=== PATIENT | male | born 1945 | race Caucasian/White ===

== ENCOUNTER 2016-12-02 13:39 | Inpatient (IN) | payer MEDICARE ==
[2016-12-02] MEDS ORDERED: PRINIVIL20 M1 PO (13:56)
[2016-12-02] MEDS ORDERED: HYDROCHLOROTHIA25 M1 PO (13:56)
[2016-12-02] MEDS ORDERED: NORVASC10 M2 PO (13:57)
[2016-12-02] MEDS ORDERED: TOPROL XL100 M1 PO (13:58)
[2016-12-02] MEDS ORDERED: NEURONTIN100 M1 PO (13:58)
[2016-12-02] MEDS ORDERED: HUMULIN R100 UNITS/ (14:06)
[2016-12-02] MEDS ORDERED: LEVEMIR100 UNITS/ SC (14:06)
[2016-12-02] MEDS ORDERED: ISOSORBIDE MONO30 M4 PO (16:54)
[2016-12-02] MEDS ORDERED: NITROSTAT0.4 M1 PO (16:57)
[2016-12-02] MEDS ORDERED: ULTRAM50 M1 PO (16:57)
[2016-12-02] MEDS ORDERED: LISINOPRIL-HCT1 EAC2 PO (19:15)
[2016-12-02] MEDS ORDERED: DAILY VITE1 EACH PO (19:15)
[2016-12-02] MEDS ORDERED: IBUPROFEN200 M2 PO (19:17)
[2016-12-02 19:18] LABS: BASO % 0.2 % (0-2); EOS % 1.3 % (0-7); EOSINOPHIL ABSOLUTE COUNT 0.2 tho/cmm (0.0-0.7); HCT-HEMATOCRIT 37.1 % (36.0-53.5); HGB-HEMOGLOBIN 12.6 gm/dl (13.5-17.0); IMMATURE GRANULOCYTES PERCENT 0.8 % (0-0.3); LYMPH % 12.8 % (20-45); LYMPH ABSOLUTE COUNT 1.6 tho/cmm (0.8-4.5); MCH (MEAN CORPUSCULAR HGB) 27.8 pg (28.0-32.0); MCV (MEAN CELL VOLUME) 81.9 fl (82.0-96.0); MEAN PLATELET VOLUME 8.9 cmc (9.4-12.4); MONO % 11.2 % (0-12); MONOCYTE ABSOLUTE COUNT 1.4 tho/cmm (0.0-1.2); NEUTROPHIL ABSOLUTE COUNT 9.3 tho/cmm (1.6-8.0); NEUTROPHIL-AUTOMATED 9.3 tho/cmm (1.6-8.0); NEUTROPHILS % 73.7 % (40-80); PLATELET COUNT 358 tho/cmm (150-450); RED BLOOD COUNT 4.53 mil/cmm (4.40-5.70); RED CELL DISTRIBUTION WIDTH 15.1 % (12.4-16.4); WHITE BLOOD COUNT 12.6 tho/cmm (4.0-10.0)
[2016-12-02] MEDS ORDERED: LOPERAMIDE2 M3 PO (19:18)
[2016-12-02] MEDS ORDERED: BENADRYL25 M3 PO (19:19)
[2016-12-02 19:33] LABS: ALB/GLOB RATIO 0.5 (0.8-2.0); ALBUMIN 2.6 g/dl (3.5-5.0); ALKALINE PHOSPHATASE 109 U/L (33-138); ALT/SGPT 17 U/L (12-78); ANION GAP 14 mmol/L (0-20); AST/SGOT 8 U/L (10-40); BILIRUBIN,TOTAL 0.4 mg/dl (0.0-1.5); BLOOD UREA NITROGEN 28 mg/dl (6-24); CALCIUM 8.8 mg/dl (8.5-10.5); CARBON DIOXIDE-VENOUS 26 mmol/L (22-32); CHLORIDE 104 mmol/l (96-110); CREATININE 1.32 mg/dl (0.60-1.30); GLUCOSE 243 mg/dL (70-110); MAGNESIUM 2.2 mg/dl (1.8-2.6); POTASSIUM 3.7 mmol/L (3.7-5.1); SODIUM 140 mmol/L (135-145); eGFR VALUE FOR BLACK 63 mL/Min
[2016-12-02 21:06] LABS: PROTHROMBIN TIME 11.5 SECONDS (9.0-13.6)
--- NOTE | 2016-12-03 01:51 | NUR ---
MD ORDERED FOR PATIENT TO BE ON A [place] [place] BED. PATIENT REFUSED TO BE ON A [place] BED AND HAS DECIDED TO SLEEP ON A REGULAR BED INSTEAD.
[2016-12-05 05:30] LABS: BASO % 0.2 % (0-2); EOS % 4.2 % (0-7); EOSINOPHIL ABSOLUTE COUNT 0.4 tho/cmm (0.0-0.7); HCT-HEMATOCRIT 35.8 % (36.0-53.5); HGB-HEMOGLOBIN 12.1 gm/dl (13.5-17.0); IMMATURE GRANULOCYTES ABSOLUTE 0.08 tho/cmm (0-0.03); IMMATURE GRANULOCYTES PERCENT 0.8 % (0-0.3); LYMPH % 21.2 % (20-45); LYMPH ABSOLUTE COUNT 2.2 tho/cmm (0.8-4.5); MCH (MEAN CORPUSCULAR HGB) 27.5 pg (28.0-32.0); MCHC MEAN CORPUSCULAR HGB CONC 33.8 % (32.0-36.0); MCV (MEAN CELL VOLUME) 81.4 fl (82.0-96.0); MEAN PLATELET VOLUME 8.8 cmc (9.4-12.4); MONO % 13.4 % (0-12); MONOCYTE ABSOLUTE COUNT 1.4 tho/cmm (0.0-1.2); NEUTROPHIL ABSOLUTE COUNT 6.2 tho/cmm (1.6-8.0); NEUTROPHIL-AUTOMATED 6.2 tho/cmm (1.6-8.0); NEUTROPHILS % 60.2 % (40-80); PLATELET COUNT 375 tho/cmm (150-450); RED CELL DISTRIBUTION WIDTH 14.9 % (12.4-16.4); WHITE BLOOD COUNT 10.3 tho/cmm (4.0-10.0)
[2016-12-05 05:38] LABS: ANION GAP 12 mmol/L (0-20); BLOOD UREA NITROGEN 26 mg/dl (6-24); CALCIUM 8.8 mg/dl (8.5-10.5); CARBON DIOXIDE-VENOUS 26 mmol/L (22-32); CHLORIDE 102 mmol/l (96-110); CREATININE 1.16 mg/dl (0.60-1.30); GLUCOSE 226 mg/dL (70-110); POTASSIUM 3.4 mmol/L (3.7-5.1); SODIUM 137 mmol/L (135-145); eGFR VALUE FOR BLACK 74 mL/Min
[2016-12-06 05:39] LABS: BASO % 0.4 % (0-2); BASO ABSOLUTE COUNT 0.1 tho/cmm (0.0-0.2); EOS % 4.3 % (0-7); EOSINOPHIL ABSOLUTE COUNT 0.6 tho/cmm (0.0-0.7); HCT-HEMATOCRIT 35.7 % (36.0-53.5); IMMATURE GRANULOCYTES ABSOLUTE 0.25 tho/cmm (0-0.03); IMMATURE GRANULOCYTES PERCENT 1.8 % (0-0.3); LYMPH % 19.3 % (20-45); LYMPH ABSOLUTE COUNT 2.6 tho/cmm (0.8-4.5); MCH (MEAN CORPUSCULAR HGB) 27.4 pg (28.0-32.0); MCHC MEAN CORPUSCULAR HGB CONC 33.6 % (32.0-36.0); MCV (MEAN CELL VOLUME) 81.5 fl (82.0-96.0); MEAN PLATELET VOLUME 9.2 cmc (9.4-12.4); MONO % 12.9 % (0-12); MONOCYTE ABSOLUTE COUNT 1.8 tho/cmm (0.0-1.2); NEUTROPHIL ABSOLUTE COUNT 8.3 tho/cmm (1.6-8.0); NEUTROPHIL-AUTOMATED 8.3 tho/cmm (1.6-8.0); NEUTROPHILS % 61.3 % (40-80); PLATELET COUNT 394 tho/cmm (150-450); RED BLOOD COUNT 4.38 mil/cmm (4.40-5.70); RED CELL DISTRIBUTION WIDTH 15.2 % (12.4-16.4); WHITE BLOOD COUNT 13.6 tho/cmm (4.0-10.0)
[2016-12-06 06:08] LABS: ANION GAP 12 mmol/L (0-20); BLOOD UREA NITROGEN 26 mg/dl (6-24); CALCIUM 8.9 mg/dl (8.5-10.5); CARBON DIOXIDE-VENOUS 23 mmol/L (22-32); CHLORIDE 103 mmol/l (96-110); CREATININE 1.16 mg/dl (0.60-1.30); GLUCOSE 194 mg/dL (70-110); SODIUM 134 mmol/L (135-145); eGFR VALUE FOR BLACK 74 mL/Min
[2016-12-06 06:12] LABS: POTASSIUM 4.3 mmol/L (3.7-5.1)
[2016-12-07] MEDS ORDERED: AUGMENTIN 875-1 EAC2 PO (12:01)
[2016-12-07] MEDS ORDERED: NORMAL SALINE TOP (12:04)
[2016-12-07] MEDS ORDERED: SANTYL30 G1 TOP (12:54)
== END 2016-12-07 13:15 | DRG 579 ==
LOC: WCC 13:39 → BURN 16:09
PROVIDERS: Anesthesiology; Surgery; ADMIT Surgery
PROC: 0KBP0ZZ Excision of Left Hip Muscle, Open Approach (ICD-10-PCS; principal; 2016-12-05)
DX: L89.223 Pressure ulcer of left hip, stage 3 (principal); G82.20 Paraplegia, unspecified; Z89.611 Acquired absence of right leg above knee; I10 Essential (primary) hypertension; Z89.612 Acquired absence of left leg above knee; E11.9 Type 2 diabetes mellitus without complications; Z79.4 Long term (current) use of insulin; I25.10 Atherosclerotic heart disease of native coronary artery without angina pectoris; Z95.5 Presence of coronary angioplasty implant and graft; N31.9 Neuromuscular dysfunction of bladder, unspecified
CPT/HCPCS: C1751; G0463; J0171; J1580; J1815; J2270; J2543; J3370; J3480; J7030; J7999